=== PATIENT | female | born 1980 | race Caucasian/White ===

== ENCOUNTER 2020-02-22 09:47 | Emergency (ER) | payer OTHER, SELFPAY ==
[2020-02-22 10:29] LABS: Absolute Lymphocytes (CBC) 2.4 K/uL (0.7-4.9); Basophils % 1.1 % (0-1.3); Hematocrit 38.4 % (36.0-45.0); Lymphocytes % 19.6 % (15.3-44.8); MPV 8.1 fL (7.6-11.3); RBC Red Blood Cell Count 4.28 M/uL (3.86-4.86)
[2020-02-22 10:36] LABS: Potassium 3.7 mmol/L (3.5-5.1)
--- NOTE | 2020-02-22 11:02 | RAD REPORT ---
EXAM DESCRIPTION: CT - Head Brain Wo Cont - 02/22/2020 10:34 am CLINICAL HISTORY: HEADACHE COMPARISON: No comparisons TECHNIQUE: Axial 5 mm thick images of the head were obtained without IV contrast. All CT scans are performed using dose optimization technique as appropriate and may include automated exposure control or mA/KV adjustment according to patient size. FINDINGS: No intracranial hemorrhage, mass, edema or shift of mid-line structures. No acute infarcti on changes seen. No abnormal extra-axial fluid collections. Ventricles are normal. Mastoid air cells and visualized portions of the paranasal sinuses are clear. No acute bony findings. IMPRESSION: Negative non-contrast CT head examination.
--- NOTE | 2020-02-22 11:07 | EDPHYS ---
Physician Documentation [facility] Name: Rachel Funez Age: 39 yrs Sex: Female : 1980 Arrival Date: 02/22/2020 Time: 09:49 Bed 13 Private MD: ED Physician Amrik Louis HPI: 02/21 10:23 This 39 yrs old Female presents to ER via Ambulatory with complaints of kb Headache, Head Sores. 10:23 The patient complains of pain to the right side of the back of head and right base of kb the skull. The patient describes the headache as constant. Onset: The symptoms/episode began/occurred 4 month(s) ago. Associated signs and symptoms: Pertinent positives: nausea, Photophobia fatigue. Severity of symptoms: At its worst the pain was moderate, in the emergency department the pain is unchanged. Headache History: Denies prior headaches. The symptoms are alleviated by nothing. the symptoms are aggravated by lights. The patient has not experienced similar symptoms in the past. The patient has not recently seen a physician. Pt reports she has had 3 sores on her scalp, headaches, fatigue for 4 months. States the sores aren't healing like they should and she just doesn't feel right. . 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 - Social history:: Smoking status: Patient reports the use of cigarette tobacco products, 1.5 PPD. ROS: 10:25 Cardiovascular: Negative for chest pain, palpitations, and edema, Respiratory: Negative kb for shortness of breath, cough, wheezing, and pleuritic chest pain, Abdomen/GI: Negative for abdominal pain, nausea, vomiting, diarrhea, and constipation, Back: Negative for injury and pain, MS/Extremity: Negative for injury and deformity, Skin: Negative for injury, rash, and discoloration. 10:25 Constitutional: Positive for fatigue. 10:25 Skin: Positive for sores. 10:25 Neuro: Positive for headache. Exam: 10:25 Constitutional: This is a well developed, well nourished patient who is awake, alert, kb and in no acute distress. Head/Face: Normocephalic, atraumatic. Chest/axilla: Normal chest wall appearance and motion. Nontender with no deformity. No lesions are appreciated. Cardiovascular: Regular rate and rhythm with a normal S1 and S2. No gallops, murmurs, or rubs. Normal PMI, no JVD. No pulse deficits. Respiratory: Lungs have equal breath sounds bilaterally, clear to auscultation and percussion. No rales, rhonchi or wheezes noted. No increased work of breathing, no retractions or nasal flaring. Abdomen/GI: Soft, non-tender, with normal bowel sounds. No distension or tympany. No guarding or rebound. No evidence of tenderness throughout. MS/ Extremity: Pulses equal, no cyanosis. Neurovascular intact. Full, normal range of motion. Neuro: Awake and alert, GCS 15, oriented to person, place, time, and situation. Cranial nerves II-XII grossly intact. Motor strength 5/5 in all extremities. Sensory grossly intact. Cerebellar exam normal. Normal gait. 10:25 Skin: small sores noted to scalp, 4 total. No redness, swelling, drainage, or warmth noted. Vital Signs: 09:55 BP 127 / 76; Pulse 82; Resp 16; Temp 97.5; Pulse Ox 100% ; Weight 68.04 kg; Height 5 hb ft. 3 in. (160.02 cm); Pain 2/10; 11:15 BP 119 / 64; Pulse 85; Resp 16; Pulse Ox 100% ; ll1 09:55 Body Mass Index 26.57 (68.04 kg, 160.02 cm) hb Cindi Coma Score: 10:24 Eye Response: spontaneous(4). Verbal Response: oriented(5). Motor Response: obeys kb commands(6). Total: 15. MDM: 10:00 Patient medically screened. kb 10:24 Data reviewed: vital signs, nurses notes. Data interpreted: Pulse oximetry: on room air kb is 100 %. Interpretation: normal. 11:04 Counseling: I had a detailed discussion with the patient and/or guardian regarding: the kb historical points, exam findings, and any diagnostic results supporting the discharge/admit diagnosis, lab results, radiology results, the need for outpatient follow up, a family practitioner, to return to the emergency department if symptoms worsen or persist or if there are any questions or concerns that arise at home. 02/21 10:05 Order name: CBC with Diff; Complete Time: 10:31 kb 02/21 10:05 Order name: Basic Metabolic Panel; Complete Time: 10:36 kb 02/21 10:05 Order name: CT Head Brain wo Cont; Complete Time: 11:03 kb 02/21 10:05 Order name: IV Start; Complete Time: 10:14 kb Administered Medications: No medications were administered Disposition: 12:26 Co-signature as Attending Physician, Amrik Louis MD. rn Disposition: 02/22/20 11:06 Discharged to Home. Impression: Open wound of scalp. - Condition is Stable. - Discharge Instructions: Wound Infection, [id number]. - Prescriptions for Keflex 500 mg Oral Capsule - take 1 capsule by ORAL route every 8 hours for 10 days; 30 capsule. - Medication Reconciliation Form, Thank You Letter, Antibiotic Education, Prescription Opioid Use, Work release form form. - Follow up: Emergency Department; When: As needed; Reason: Worsening of condition. Follow up: Private Physician; When: 2 - 3 days; Reason: Recheck today's complaints, Continuance of care, Re-evaluation by your physician. Signatures: Dispatcher [employer] EDSeema Durham, NURSE EMERGENCY ROOM-C NURSE EMERGENCY ROOM-Ckb Amrik Louis MD MD rn Baxter, Heather, RN RN hb Lewis, Lynsay, RN RN ll1 Corrections: (The following items were deleted from the chart) 11:16 11:06 02/22/2020 11:06 Discharged to Home. Impression: Open wound of scalp. Condition ll1 is Stable. Forms are Medication Reconciliation Form, Thank You Letter, Antibiotic Education, Prescription Opioid Use. Follow up: Emergency Department; When: As needed; Reason: Worsening of condition. Follow up: Private Physician; When: 2 - 3 days; Reason: Recheck today's complaints, Continuance of care, Re-evaluation by your physician. kb
--- NOTE | 2020-02-22 11:07 | ER ---
Nurse's Notes [facility] Name: Rachel Funez Age: 39 yrs Sex: Female : 1980 Arrival Date: 02/22/2020 Time: 09:49 Bed 13 Private MD: Diagnosis: Open wound of scalp Presentation: 02/21 09:55 Chief complaint: Patient states: "I have had a headache and sores on my scalp for a hb couple months, and I feel very tired all the time.". Coronavirus screen: At this time, the client does not indicate any symptoms associated with coronavirus-19. Ebola Screen: No symptoms or risks identified at this time. Initial Sepsis Screen: Does the patient meet any 2 criteria? No. Patient's initial sepsis screen is negative. Does the patient have a suspected source of infection? No. Patient's initial sepsis screen is negative. Risk Assessment: Do you want to hurt yourself or someone else? Patient reports no desire to harm self or others. Onset of symptoms was December 2019. 09:55 Method Of Arrival: Ambulatory 09:55 Acuity: CEE 3 hb Triage Assessment: 10:56 Headache History: The patient has had previous headaches and this one is similar to ll1 previous episodes. General: Appears in no apparent distress. Behavior is calm, cooperative. Pain: Complains of pain in right base of the skull Pain currently is 6 out of 10 on a pain scale. Pain began 4 months Also complains of fatigue. 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 - Social history:: Smoking status: Patient reports the use of cigarette tobacco products, 1.5 PPD. Screenin:57 Abuse screen: Denies threats or abuse. Nutritional screening: No deficits noted. ll1 Tuberculosis screening: No symptoms or risk factors identified. Fall Risk IV access (20 points). Total Dunaway Fall Scale indicates No Risk (0-24 pts). Assessment: 10:10 General: Appears in no apparent distress. Behavior is calm, cooperative. Pain: ll1 Complains of pain in right side of the back of head Quality of pain is described as aching, Is intermittent. Neuro: Level of Consciousness is awake, alert, obeys commands, Oriented to person, place, time, situation, Appropriate for age Churn Operator Margarine are equal bilaterally Moves all extremities. Full function Gait is steady, Speech is normal, Facial symmetry appears normal, Reports headache occipital area, sores and pain to scalp area for 4 months.. Cardiovascular: No deficits noted. Respiratory: No deficits noted. Derm: Reports Sores to scalp for 4 months. No drainage at this time. 11:10 Reassessment: Patient and/or family updated on plan of care and expected duration. Pain ll1 level reassessed. Patient is alert, oriented x 3, equal unlabored respirations, skin warm/dry/pink. Vital Signs: 09:55 BP 127 / 76; Pulse 82; Resp 16; Temp 97.5; Pulse Ox 100% ; Weight 68.04 kg; Height 5 hb ft. 3 in. (160.02 cm); Pain 2/10; 11:15 BP 119 / 64; Pulse 85; Resp 16; Pulse Ox 100% ; ll1 09:55 Body Mass Index 26.57 (68.04 kg, 160.02 cm) hb Cindi Coma Score: 10:24 Eye Response: spontaneous(4). Verbal Response: oriented(5). Motor Response: obeys kb commands(6). Total: 15. ED Course: 09:49 Patient arrived in ED. ds1 09:49 [facility]C [facility]. kb 09:50 Amrik Louis MD is Attending Physician. kb 09:56 Triage completed. hb 09:57 Arm band placed on. hb 09:58 Yumiko Benz, CORNELIO is Primary Nurse. ll1 10:10 Inserted saline lock: 20 gauge in right antecubital area, using aseptic technique. ll1 Blood collected. 10:35 CT Head Brain wo Cont In Process Unspecified. EDMS 10:57 Patient has correct armband on for positive identification. Bed in low position. Call ll1 light in reach. Side rails up X 1. Pulse ox on. NIBP on. 11:16 IV discontinued, intact, bleeding controlled, No redness/swelling at site. Pressure ll1 dressing applied. 11:16 No provider procedures requiring assistance completed. ll1 Administered Medications: No medications were administered Outcome: 11:06 Discharge ordered by . mary 11:16 Patient left the ED. ll1 11:16 Discharged to home ambulatory. ll1 11:16 Condition: stable 11:16 Discharge instructions given to patient, Instructed on discharge instructions, follow up and referral plans. medication usage, Demonstrated understanding of instructions, follow-up care, medications, Prescriptions given X 1. Signatures: Dispatcher [employer] EDTN Seema Harvey, MANAGER CLINICAL PHARMACY-C MANAGER CLINICAL PHARMACY-Shea Paml ds1 Dinorah Pal, RN RN Yumiko Benz RN RN ll1
[2020-02-22 11:23] VITALS: TEMP 97.5; O2SAT 100
[2020-02-22 11:24] VITALS: BP 119/64
== END 2020-02-22 11:16 | disposition home or self-care (01) ==
LOC: ER 09:47
DX: S01.00XA Unspecified open wound of scalp, initial encounter (principal); F17.210 Nicotine dependence, cigarettes, uncomplicated
CPT/HCPCS: 36415; 70450; 80048; 85025; 99284

== ENCOUNTER 2021-05-07 17:47 | Emergency (ER) | payer SELFPAY ==
--- OUTSIDE RECORDS SUMMARY | 2021-05-07 17:50 | XMS REPORT | Continuity of Care Document ---
:1980 Author Organization [facility] t Address [address] [place] [address] Care Team Providers Name Role Phone Unavailable Unavailable Unavailable Problems This patient has no known problems. Allergies, Adverse Reactions, Alerts This patient has no known allergies or adverse reactions. Medications This patient has no known medications. Procedures This patient has no known procedures. Encounters Start End Encounter Admission Attending Care Care Encounter Source Date/Time Date/Time Type Type Clinicians Facility Department ID 2020-11-02 2020-11-02 Outpatient [facility] [id number] [facility] 07:55:00 07:55:00 2020-09-19 2020-09-19 Outpatient [facility] [id number] [facility] 09:19:00 09:19:00 2020-09-09 2020-09-09 Emergency E [facility] [id number] [facility] 04:33:00 04:33:00 Results This patient has no known results.
[2021-05-07] MEDS ORDERED: dexAMETHasone 4 MG/ML VIAL ONE (18:42)
[2021-05-07] MEDS ORDERED: dexAMETHasone 10 MG/ML VIAL ONE (18:43)
[2021-05-07 19:39] LABS: SARS-COV-2 RT PCR NEGATIVE (NEGATIVE)
--- NOTE | 2021-05-07 19:50 | EDPHYS ---
Physician Documentation [facility] Name: Rachel Funez Age: 40 yrs Sex: Female : 1980 Arrival Date: 05/07/2021 Time: 17:49 Bed 17 Private MD: QUANG Physician Rupesh Marquez HPI: 05/07 18:36 This 40 yrs old Female presents to ER via Ambulatory with complaints of Sore Throat, pm1 Headache, Ear Pain. 18:36 The patient presents with sore throat. The patient describes throat pain as raw, pm1 scratchy. Onset: The symptoms/episode began/occurred 3 day(s) ago. Severity of symptoms: in the emergency department the symptoms are actually worse. Modifying factors: The symptoms are alleviated by nothing, the symptoms are aggravated by swallowing. Associated signs and symptoms: Pertinent positives: earache, headache, bodyaches. The patient has experienced similar episodes in the past, multiple times, today's symptoms are similar, to previous strep throat dx in the past. The patient has not recently seen a physician. 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 - Social history:: Smoking status: Patient reports the use of cigarette tobacco products, smokes one pack cigarettes per day. ROS: 18:36 Cardiovascular: Negative for chest pain, palpitations, and edema, Abdomen/GI: Negative pm1 for abdominal pain, nausea, vomiting, diarrhea, and constipation. 18:36 Back: Negative for injury and pain, MS/Extremity: Negative for injury and deformity, Skin: Negative for injury, rash, and discoloration. 18:36 Constitutional: Positive for body aches, Negative for poor PO intake. 18:36 ENT: Positive for ear pain, sore throat, Negative for difficulty swallowing, difficulty handling secretions. 18:36 Neck: Positive for swollen nodes. 18:36 Respiratory: Positive for cough, Negative for shortness of breath, sputum production, wheezing. 18:36 Neuro: Positive for headache, Negative for numbness, tingling, weakness. 18:36 All other systems are negative. Exam: 18:36 Constitutional: This is a well developed, well nourished patient who is awake, alert, pm1 and in no acute distress. Head/Face: Normocephalic, atraumatic. 18:36 Skin: Warm, dry with normal turgor. Normal color with no rashes, no lesions, and no evidence of cellulitis. MS/ Extremity: Pulses equal, no cyanosis. Neurovascular intact. Full, normal range of motion. 18:36 ENT: Posterior pharynx: Tonsils: enlarged on the right, with erythema, with exudate, no ulcerations, erythema, that is moderate, peritonsillar mass, is not appreciated, pooling of secretions, is not appreciated. 18:36 Cardiovascular: Exam negative for acute changes, Rate: normal, Rhythm: regular, Pulses: no pulse deficits are appreciated, Edema: is not appreciated. 18:36 Respiratory: Exam negative for acute changes, respiratory distress, shortness of breath, Breath sounds: are clear throughout. 18:36 Neuro: Exam negative for acute changes, Orientation: is normal, Mentation: is normal, Motor: is normal, moves all fours. Vital Signs: 18:20 BP 114 / 67; Pulse 75; Resp 16; Temp 98.1(O); Pulse Ox 100% ; Weight 71.67 kg; Height 5 vg1 ft. 3 in. (160.02 cm); Pain 4/10; 18:20 Body Mass Index 27.99 (71.67 kg, 160.02 cm) vg1 MDM: 18:31 Patient medically screened. pm1 19:49 Data reviewed: vital signs. Data interpreted: Pulse oximetry: on room air is 100 %. pm1 Interpretation: normal. Counseling: I had a detailed discussion with the patient and/or guardian regarding: the historical points, exam findings, and any diagnostic results supporting the discharge/admit diagnosis, lab results, the need for outpatient follow up, to return to the emergency department if symptoms worsen or persist or if there are any questions or concerns that arise at home. 05/07 18:20 Order name: Strep vg1 05/07 18:20 Order name: COVID-19/FLU A+B (Document "Date of Onset" if Symptomatic) vg1 05/07 18:20 Order name: Group A Streptococcus Rapid Sc; Complete Time: 18:50 EDMS 05/07 18:20 Order name: COVID-19/FLU A+B; Complete Time: 19:45 EDMS 05/07 19:29 Order name: Throat Culture EDMS Administered Medications: 18:46 Drug: Decadron (dexamethasone) 10 mg Route: IM; Site: right deltoid; jh5 Disposition: 05/08 07:06 Co-signature as Attending Physician, Rupesh Marquez MD I agree with the assessment and dia plan of care. Disposition Summary: 05/07/21 19:50 Discharge Ordered Location: Home pm1 Problem: new pm1 Symptoms: have improved pm1 Condition: Stable pm1 Diagnosis - Acute pharyngitis, unspecified pm1 Followup: pm1 - With: Emergency Department - When: As needed - Reason: Worsening of condition Followup: pm1 - With: Private Physician - When: 2 - 3 days - Reason: Recheck today's complaints, Continuance of care, Re-evaluation by your physician Discharge Instructions: - Discharge Summary Sheet pm1 - Pharyngitis pm1 Forms: - Medication Reconciliation Form pm1 - Thank You Letter pm1 - Antibiotic Education pm1 - Work release form pm1 - Prescription Opioid Use pm1 Signatures: Dispatcher [employer] EDMS Rupesh Marquez MD MD cha Marinas, Patrick, NP COLLISION REPAIRER pm1 Polly Glover, RN RN vg1 Lakeisha Gifford RN RN jh5 Corrections: (The following items were deleted from the chart) 05/07 18:22 18:21 PSHx: None; vg1 vg1
--- NOTE | 2021-05-07 19:50 | ER ---
Nurse's Notes [facility] Name: Rachel Funez Age: 40 yrs Sex: Female : 1980 Arrival Date: 05/07/2021 Time: 17:49 Bed 17 Private MD: Diagnosis: Acute pharyngitis, unspecified Presentation: 05/07 18:20 Chief complaint: Patient states: sore throat, MAURISIO ear pain, nausea and headache x 3 vg1 days. Coronavirus screen: Vaccine status: Patient reports receiving the 2nd dose of the covid vaccine. Client denies travel out of the [place] in the last 14 days. Ebola Screen: Patient negative for fever greater than or equal to 101.5 degrees Fahrenheit, and additional compatible Ebola Virus Disease symptoms. Initial Sepsis Screen: Does the patient meet any 2 criteria? No. Patient's initial sepsis screen is negative. Does the patient have a suspected source of infection? No. Patient's initial sepsis screen is negative. Risk Assessment: Do you want to hurt yourself or someone else? Patient reports no desire to harm self or others. Onset of symptoms was May 04, 2021. 18:20 Method Of Arrival: Ambulatory vg1 18:20 Acuity: CEE 4 vg1 Triage Assessment: 18:21 General: Appears in no apparent distress. uncomfortable, Behavior is calm, cooperative. vg1 Pain: Complains of pain in right ear and left ear, throat and head Pain currently is 4 out of 10 on a pain scale. 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 - Social history:: Smoking status: Patient reports the use of cigarette tobacco products, smokes one pack cigarettes per day. Screenin:31 Abuse screen: Denies threats or abuse. Denies injuries from another. Nutritional jh5 screening: No deficits noted. Tuberculosis screening: No symptoms or risk factors identified. Fall Risk None identified. Assessment: 18:30 Respiratory: Airway is patent Respiratory effort is even, unlabored, Respiratory 5 pattern is regular, symmetrical, Breath sounds are clear. 18:31 EENT: Throat is reddened. 5 Vital Signs: 18:20 BP 114 / 67; Pulse 75; Resp 16; Temp 98.1(O); Pulse Ox 100% ; Weight 71.67 kg; Height 5 vg1 ft. 3 in. (160.02 cm); Pain 4/10; 18:20 Body Mass Index 27.99 (71.67 kg, 160.02 cm) 1 ED Course: 17:49 Patient arrived in ED. as 18:21 Triage completed. vg1 18:21 Arm band placed on. vg1 18:22 COVID swab sent to lab. Flu and/or RSV swab sent to lab. Strep swab sent to lab. vg1 18:29 Lakeisha Gifford, RN is Primary Nurse. 5 18:30 Gurdeep Romano NP is PHCP. pm1 18:30 Rupesh Marquez MD is Attending Physician. pm1 18:31 Patient has correct armband on for positive identification. Bed in low position. Call [facility] light in reach. Side rails up X 1. 18:31 No provider procedures requiring assistance completed. 5 Administered Medications: 18:46 Drug: Decadron (dexamethasone) 10 mg Route: IM; Site: right deltoid; [facility] Outcome: 19:50 Discharge ordered by . pm1 20:03 Patient left the ED. 1 Signatures: Tonya Paul Patrick, NP INSTRUCTOR MILITARY SCIENCE pm1 Polly Glover RN RN 1 So Snow RN RN 1 Lakeisha Gifford, CORNELIO GRIMES 5 Corrections: (The following items were deleted from the chart) 18: 18:21 PSHx: None; vg1 vg1
[2021-05-07 20:08] VITALS: BP 114/67; TEMP 98.1; O2SAT 100
== END 2021-05-07 20:03 | disposition home or self-care (01) ==
LOC: ER 17:47
DX: J02.9 Acute pharyngitis, unspecified (principal); F17.210 Nicotine dependence, cigarettes, uncomplicated; Z20.822 Contact with and (suspected) exposure to COVID-19
CPT/HCPCS: 0240U; 87070; 87081; 96372; 99283; J1100